=== PATIENT | male | born 1945 | race Caucasian/White ===

== ENCOUNTER 2016-09-14 16:38 | Inpatient (IN) | payer MEDICARE, OTHER ==
[~2016-09-14] VITALS: Ht 182.9 cm; Wt 105.5 kg
[~2016-09-14 16:38] MED LIST: ECOTRIN81 MG PO
[2016-09-14 17:10] LABS: HEMOGLOBIN 11.5 gm/dl (14.0-17.5); RED BLOOD COUNT 3.64 M/UL (4.20-5.50); WHITE BLOOD COUNT 17.3 K/UL (4.5-11.0)
[2016-09-14 17:39] LABS: BUN/CREATININE RATIO 15 (0-10)
[2016-09-14] MEDS ORDERED: COMBIVENT0.074 GM/I INH ×2 (23:01→23:03)
[2016-09-14] MEDS ORDERED: VITAMIN D31000 UNI1 PO (23:01)
[2016-09-14] MEDS ORDERED: ULTRAM50 MG PO (23:03)
[2016-09-14] MEDS ORDERED: TYLENOL 325MG325 MG PO (23:04)
[2016-09-14] MEDS ORDERED: KLOR-CON M2020 MEQ PO (23:04)
[2016-09-14] MEDS ORDERED: COREG 3.125M3.125 MG PO (23:05)
[2016-09-14] MEDS ORDERED: FLUOXETINE HCL40 MG PO (23:05)
[2016-09-15 02:36] LABS: HEMOGLOBIN 11.7 gm/dl (14.0-17.5); RED BLOOD COUNT 3.7 M/UL (4.20-5.50)
[2016-09-15 02:37] LABS: WHITE BLOOD COUNT 25.1 K/UL (4.5-11.0)
--- NOTE | 2016-09-15 10:13 | NUR ---
1005 BODY RELEASED TO [facility]
--- NOTE | 2016-09-15 10:17 | NUR ---
0745 DR FRANCO AT BEDSIDE PATIENT ASYSTOLE UNABLE TO DOPPLER PULSE DR FRANCO PRONOUNCED
== END 2016-09-15 10:10 | disposition expired ==
LOC: ER1 16:38 → ZEROF 18:16 → PROG CARE 20:36
PROVIDERS: Family Medicine; ADMIT Emergency Medicine
PROC: 5A09357 Assistance with Respiratory Ventilation, Less than 24 Consecutive Hours, Continuous Positive Airway Pressure (ICD-10-PCS; principal; 2016-09-15)
DX: I21.4 Non-ST elevation (NSTEMI) myocardial infarction (principal); I50.33 Acute on chronic diastolic (congestive) heart failure; J96.90 Respiratory failure, unspecified, unspecified whether with hypoxia or hypercapnia; I13.0 Hypertensive heart and chronic kidney disease with heart failure and stage 1 through stage 4 chronic kidney disease, or unspecified chronic kidney disease; R57.0 Cardiogenic shock; N18.2 Chronic kidney disease, stage 2 (mild); I48.0 Paroxysmal atrial fibrillation; J44.9 Chronic obstructive pulmonary disease, unspecified; E78.5 Hyperlipidemia, unspecified; I89.0 Lymphedema, not elsewhere classified; D72.829 Elevated white blood cell count, unspecified; R31.9 Hematuria, unspecified; Z66 Do not resuscitate; Z86.73 Personal history of transient ischemic attack (TIA), and cerebral infarction without residual deficits; Z79.1 Long term (current) use of non-steroidal anti-inflammatories (NSAID); Z99.81 Dependence on supplemental oxygen; Z79.899 Other long term (current) drug therapy; Z88.2 Allergy status to sulfonamides; Z96.643 Presence of artificial hip joint, bilateral; Z98.890 Other specified postprocedural states; Z82.49 Family history of ischemic heart disease and other diseases of the circulatory system
CPT/HCPCS: 36415; 36600; 71010; 80053; 80061; 81001; 82550; 82553; 82607; 82728; 82746; 82803; 82962; 83036; 83540; 83735; 83874; 83880; 84439; 84443; 84466; 84484; 85025; 87040; 87077; 87086; 87186; 93005; 94660; 96372; 96374; 99291; J0171; J0461; J1265; J1650; J1940; J2930